=== PATIENT | born 1990 | race Caucasian/White ===

== ENCOUNTER 2018-08-06 15:16 | Emergency (ER) | payer MEDICAID ==
--- NOTE | 2018-08-06 15:30 | EDPHY ---
H & P Time Seen by Provider: 08/06/18 15:16 HPI/ROS: CHIEF COMPLAINT: Suicidal ideation and altered mental status HISTORY OF PRESENT ILLNESS: A 28-year-old had a welfare check by police because friends had called 911. Apparently the patient had made some suicidal statements via text, was not contactable by Facebook or phone. On arrival the patient was ambulatory but staring and was not really verbal. Got intranasal Narcan and then became more talkative. Patient describes being scared but denies overdose or self harm. No recent illnesses. REVIEW OF SYSTEMS: Eye: no change in vision ENT: no sore throat Cardiac: no chest pain or syncope Pulmonary: no cough or SOB Abdomen: no vomiting, diarrhea, abdominal pain, no black or bloody stools Musculoskeletal: no back pain Skin: no rash Neuro: no headache Constitutional: no fever : no urinary symptoms A comprehensive 10 point review of systems is otherwise negative aside from elements mentioned in the history of present illness. PAST MEDICAL HISTORY: Depression and told me gets intermittent ketamine infusions; later mom said patient uses intranasal at home Social history: Denies drugs, nonsmoker General Appearance: Alert and conversant, cooperative. Eyes: No scleral icterus. Pupils equal reactive extraocular motion intact. ENT, Mouth: Normal mucous membranes. No tongue laceration or abrasion, there is a tongue stud present. Respiratory: Normal respiratory effort, breath sounds equal, lungs are clear to auscultation. Cardiovascular: Regular rate and rhythm. Gastrointestinal: Abdomen is soft and non tender. Neurological: Alert, face symmetric, normal motor and sensory in extremities. Cooperative but speech is slow and responses are delayed. Skin: Warm and dry, no rashes. Musculoskeletal: No peripheral edema. Psychiatric: Patient has slow speech, admits to previous but not current suicidal ideation, denies hallucinations or HI. Emergency Department course/MDM: Placed on a mental health hold by police. Screening labs and urine tox, psychiatric evaluation. Labs reviewed. Hematocrit noted to be slightly low at 35 but no signs or symptoms of acute blood loss. The patient had a medical screening evaluation performed. There does not appear to be an acute emergent medical or surgical condition which would preclude psychiatric evaluation at this time. Mental health evaluation is requested at 1550. 2228: Discussed with mental health, evaluation is complete and is the recommendation of the labor relations consultant sales porter and psychiatrist that the hold be lifted and the patient discharge with outpatient follow-up. Does not appear to be a danger to self at this time. Has not been sleeping a lot but has been tapering and weaning off of Valium. Not currently suicidal. Smoking Status: Never smoked Constitutional: Initial Vital Signs Temperature (C) 37.1 C 08/06/18 15:21 Heart Rate 83 08/06/18 15:21 Respiratory Rate 16 08/06/18 15:21 Blood Pressure 131/86 H 08/06/18 15:21 O2 Sat (%) 96 08/06/18 15:21 O2 Delivery Mode Room Air Allergies/Adverse Reactions: gluten Allergy (Verified 08/06/18 15:24) Home Medications: Medication Instructions Recorded Ketamine 08/06/18 Medical Decision Making Differential Diagnosis: Differential diagnosis considered for depression including functional and major depression, situational depression, medication side effect, drugs and alcohol abuse. - Data Points Laboratory Results: Laboratory Results 08/06/18 15:21 08/06/18 15:21 08/06/18 08/06/18 08/06/18 18:10 15:21 15:21 WBC RBC Hgb Hct MCV MCH MCHC RDW Plt Count MPV Neut % (Auto) Lymph % (Auto) [place] % (Auto) Eos % (Auto) Baso % (Auto) Nucleat RBC Rel Count Absolute Neuts (auto) Absolute Lymphs (auto) Absolute Monos (auto) Absolute Eos (auto) Absolute Basos (auto) Absolute Nucleated RBC Immature Gran % Immature Gran # Platelet Estimate Polychromasia Hypochromasia Microcytic Cells Tear Drop Cells Elliptocytes Keratocytes Smear Review By Sodium 138 mEq/L mEq/L (135-145) Potassium 3.7 mEq/L mEq/L (3.3-5.0) Chloride 106 mEq/L mEq/L (97-110) Carbon Dioxide 19 mEq/l L mEq/l (22-31) Anion Gap 13 mEq/L mEq/L (6-14) BUN 8 mg/dL mg/dL (7-23) Creatinine 0.9 mg/dL mg/dL (0.7-1.3) Estimated GFR > 60 Glucose 116 mg/dL H mg/dL (70-100) Calcium 9.7 mg/dL mg/dL (8.5-10.4) Beta HCG, Qual NEGATIVE Salicylates < 1.0 mg/dL L mg/dL (2.0-20.0) Urine Opiates Screen NEGATIVE (NEGATIVE) Acetaminophen < 10 mcg/mL L mcg/mL (10-30) Urine Barbiturates NEGATIVE (NEGATIVE) Ur Phencyclidine Scrn NEGATIVE (NEGATIVE) Ur Amphetamine Screen NEGATIVE (NEGATIVE) U Benzodiazepines Scrn NON-NEGATIVE H (NEGATIVE) Urine Cocaine Screen NEGATIVE (NEGATIVE) U Marijuana (THC) Screen NEGATIVE (NEGATIVE) Ethyl Alcohol < 10 mg/dL mg/dL (0-10) 08/06/18 15:21 WBC 7.12 10^3/uL 10^3/uL (3.80-9.50) RBC 5.12 10^6/uL 10^6/uL (4.40-6.38) Hgb 10.2 g/dL L g/dL (13.7-17.5) Hct 35.3 % L % (40.0-51.0) MCV 68.9 fL L fL (81.5-99.8) MCH 19.9 pg L pg (27.9-34.1) MCHC 28.9 g/dL L g/dL (32.4-36.7) RDW 17.0 % H % (11.5-15.2) Plt Count 335 10^3/uL 10^3/uL (150-400) MPV 10.4 fL fL (8.7-11.7) Neut % (Auto) 71.2 % % (39.3-74.2) Lymph % (Auto) 17.3 % % (15.0-45.0) [place] % (Auto) 4.9 % % (4.5-13.0) Eos % (Auto) 5.3 % % (0.6-7.6) Baso % (Auto) 1.0 % % (0.3-1.7) Nucleat RBC Rel Count 0.0 % % (0.0-0.2) Absolute Neuts (auto) 5.07 10^3/uL 10^3/uL (1.70-6.50) Absolute Lymphs (auto) 1.23 10^3/uL 10^3/uL (1.00-3.00) Absolute Monos (auto) 0.35 10^3/uL 10^3/uL (0.30-0.80) Absolute Eos (auto) 0.38 10^3/uL 10^3/uL (0.03-0.40) Absolute Basos (auto) 0.07 10^3/uL 10^3/uL (0.02-0.10) Absolute Nucleated RBC 0.00 10^3/uL 10^3/uL (0-0.01) Immature Gran % 0.3 % % (0.0-1.1) Immature Gran # 0.02 10^3/uL 10^3/uL (0.00-0.10) Platelet Estimate ADEQUATE (ADEQ) Polychromasia 1+ H Hypochromasia 1+ H Microcytic Cells 2+ H Tear Drop Cells 1+ H Elliptocytes 1+ H Keratocytes 1+ H Smear Review By Pending Sodium Potassium Chloride Carbon Dioxide Anion Gap BUN Creatinine Estimated GFR Glucose Calcium Beta HCG, Qual Salicylates Urine Opiates Screen Acetaminophen Urine Barbiturates Ur Phencyclidine Scrn Ur Amphetamine Screen U Benzodiazepines Scrn Urine Cocaine Screen U Marijuana (THC) Screen Ethyl Alcohol Departure - Departure Disposition: Home, Routine, Self-Care Clinical Impression: PTSD (post-traumatic stress disorder) Condition: Fair Instructions: Post Traumatic Stress Disorder (ED), Suicide Prevention (ED) Additional Instructions: There were some incidental abnormal findings on your CBC blood test; you need to follow up with the referral physician or your primary care doctor within the next 2 weeks for further evaluation. Referrals: Armando Dhillon MD [Medical Doctor] - As per Instructions Tigre Quintero MD [Medical Doctor] - As per Instructions
[2018-08-06 15:40] LABS: PLATELET COUNT 335 10^3/uL (150-400)
[2018-08-06 22:47] VITALS: BP 119/79
--- NOTE | 2018-08-06 22:50 | ASMTTCLDSP ---
TLC Discharge Disposition Disposition: Answers: Discharge Disposition Notes: Notes: In consultation with [facility] ED physician, Braden Lovelace MD, and on-call psychiatrist Armando Dhillon MD, it was concurred that pt does not appear to meet 27-65 criteria requiring psychiatric hospitalization as pt does not appear to be an imminent risk of harm to self or gravely disabled due to a mental illness condition. Dr. Lovelace vacating M1 hold at 22:30 hrs. Discharge Concerns/Recommendations: Notes: [place] spoke with pt's therapist who has scheduled an appointment to meet with him tomorrow and is also engaging the PT's psychiatrist and professional support team. Pt is blank for safety and is remorseful that he upset so many people by not communicating effectively. He was given the crisis hotline and agreed to use it should any suicidal ideation or impusivity return. Was patient given the Answers: Not applicable Inpatient Behavioral Health Prohibited Belongings List while in the ED? Psychiatrist vacating M1 Braden Lovelace Hold: Date and time M1 hold 08/06/2018 10:30 PM vacated (time format is hh:mm): Type of Hold: Answers: M1/72-hour Hold Hold initiated by: Answers: Police Date Signed: 08/06/2018 10:49 PM Electronically Signed By:Grant Jett
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
== END 2018-08-06 22:47 | disposition home or self-care (01) ==
LOC: EDUNIT# → EDSEX 15:16 → EEVIPCON 15:16
DX: R45.851 Suicidal ideations (principal); F43.10 Post-traumatic stress disorder, unspecified; R41.82 Altered mental status, unspecified
CPT/HCPCS: 80305; G0480